=== PATIENT | male | born 1965 | race American Indian/Alaskan Native ===

== ENCOUNTER 2017-02-27 16:19 | Emergency (ER) | payer OTHER ==
[2017-02-27 16:28] VITALS: BP 150/94; PULSE 81; RESP 18; TEMP 98.1; O2SAT 100
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
== END 2017-02-27 17:20 | disposition home or self-care (01) ==
LOC: ED 16:19
DX: S39.012A Strain of muscle, fascia and tendon of lower back, initial encounter (principal); V49.9XXA Car occupant (driver) (passenger) injured in unspecified traffic accident, initial encounter
CPT/HCPCS: 96372; 99284; J1885